=== PATIENT | male | born 1985 | race Asian ===

== ENCOUNTER 2016-12-06 09:45 | Emergency (ER) | payer OTHER ==
[~2016-12-06] VITALS: Ht 170.2 cm; Wt 72.6 kg
[2016-12-06 12:09] VITALS: BP 133/82; TEMP 98.9
== END 2016-12-06 12:12 | disposition home or self-care (01) ==
LOC: ED 09:45
DX: J06.9 Acute upper respiratory infection, unspecified (principal); J00 Acute nasopharyngitis [common cold]
CPT/HCPCS: 87804; 99283

== ENCOUNTER 2016-12-08 10:42 | Emergency (ER) | payer OTHER ==
[~2016-12-08] VITALS: Ht 170.2 cm; Wt 70.8 kg
[2016-12-08 22:48] VITALS: BP 128/85; TEMP 99.5
== END 2016-12-08 22:48 | disposition home or self-care (01) ==
LOC: ED 10:42
DX: J06.9 Acute upper respiratory infection, unspecified (principal)

== ENCOUNTER 2017-10-19 10:26 | Emergency (ER) | payer OTHER ==
[~2017-10-19] VITALS: Ht 172.7 cm; Wt 72.6 kg
[2017-10-19 10:30] VITALS: TEMP 97.9
[2017-10-19 11:38] LABS: PLATELET COUNT 254 K/uL (142-355)
[2017-10-19 12:38] VITALS: BP 132/84
== END 2017-10-19 12:38 | disposition home or self-care (01) ==
LOC: ED 10:26
PROVIDERS: Family Medicine
DX: L08.9 Local infection of the skin and subcutaneous tissue, unspecified (principal)
CPT/HCPCS: 84550; 85027; 96374; 99284; J1885

== ENCOUNTER 2018-06-07 10:12 | Emergency (ER) | payer OTHER | END 2018-06-07 10:48 | disposition home or self-care (01) | LOC: ED 10:12 | DX: R20.0 Anesthesia of skin (principal) | CPT/HCPCS: 99281 ==

== ENCOUNTER 2018-07-04 09:34 | Emergency (ER) | payer OTHER ==
[~2018-07-04] VITALS: Ht 170.2 cm; Wt 59.0 kg
[2018-07-04 09:35] VITALS: BP 121/95; TEMP 97.9
== END 2018-07-04 10:59 | disposition home or self-care (01) ==
LOC: ED 09:34
DX: K08.89 Other specified disorders of teeth and supporting structures (principal); K04.7 Periapical abscess without sinus
CPT/HCPCS: 99282; J1885

== ENCOUNTER 2018-09-09 03:18 | Emergency (ER) | payer OTHER ==
[~2018-09-09] VITALS: Ht 170.2 cm; Wt 59.0 kg
[2018-09-09 03:44] VITALS: BP 143/93; TEMP 97.9
== END 2018-09-09 04:50 | disposition home or self-care (01) ==
LOC: ED 03:18
DX: S80.11XA Contusion of right lower leg, initial encounter (principal); W18.2XXA Fall in (into) shower or empty bathtub, initial encounter; Y93.89 Activity, other specified; Y92.012 Bathroom of single-family (private) house as the place of occurrence of the external cause
CPT/HCPCS: 99282

== ENCOUNTER 2019-01-24 19:24 | Emergency (ER) | payer OTHER ==
[~2019-01-24] VITALS: Ht 170.2 cm; Wt 67.1 kg
[2019-01-24 20:11] VITALS: BP 126/72; TEMP 98.1
== END 2019-01-24 20:11 | disposition home or self-care (01) ==
LOC: ED 19:24
PROC: 0HQGXZZ Repair Left Hand Skin, External Approach (ICD-10-PCS; principal; 2019-01-24)
DX: S61.215A Laceration without foreign body of left ring finger without damage to nail, initial encounter (principal); W45.8XXA Other foreign body or object entering through skin, initial encounter
CPT/HCPCS: 90471; 90715; 96372; 99283; J0696

== ENCOUNTER 2019-02-01 14:59 | Emergency (ER) | payer OTHER ==
[~2019-02-01] VITALS: Ht 170.2 cm; Wt 74.8 kg
[2019-02-01 15:11] VITALS: BP 126/84; TEMP 98.1
== END 2019-02-01 15:55 | disposition home or self-care (01) ==
LOC: ED 14:59
DX: Z48.02 Encounter for removal of sutures (principal)

== ENCOUNTER 2019-02-25 22:51 | Outpatient (CLI) | payer OTHER | END 2019-02-25 22:59 | disposition short-term general hospital (02) | LOC: AMB 22:51 | DX: R42 Dizziness and giddiness (principal); R53.1 Weakness | CPT/HCPCS: A0425; A0427 ==

== ENCOUNTER 2019-02-25 23:10 | Emergency (ER) | payer OTHER ==
[~2019-02-25] VITALS: Ht 170.2 cm; Wt 74.8 kg
[2019-02-26 00:19] LABS: PLATELET COUNT 302 K/uL (142-355)
[2019-02-26 00:27] LABS: POTASSIUM 3.5 mmol/L (3.6-5.2)
[2019-02-26 01:25] VITALS: BP 110/75; TEMP 98.4
== END 2019-02-26 01:27 | disposition home or self-care (01) ==
LOC: ED 23:10
PROVIDERS: Family Medicine
DX: R51 Headache (principal); K04.7 Periapical abscess without sinus; R11.0 Nausea
CPT/HCPCS: 36415; 80053; 80307; 80320; 81000; 85027; 96374; 96376; 99284; J1885; J2405

== ENCOUNTER 2019-05-25 19:41 | Emergency (ER) | payer OTHER ==
[~2019-05-25] VITALS: Ht 170.2 cm; Wt 74.8 kg
[2019-05-25 19:45] VITALS: TEMP 98
[2019-05-25 21:38] VITALS: BP 128/90
== END 2019-05-25 21:52 | disposition home or self-care (01) ==
LOC: ED 19:41
DX: S70.11XA Contusion of right thigh, initial encounter (principal); S80.01XA Contusion of right knee, initial encounter; S90.01XA Contusion of right ankle, initial encounter; S90.31XA Contusion of right foot, initial encounter; V09.9XXA Pedestrian injured in unspecified transport accident, initial encounter; Y92.093 Driveway of other non-institutional residence as the place of occurrence of the external cause
CPT/HCPCS: 99283

== ENCOUNTER 2019-06-19 15:45 | Emergency (ER) | payer OTHER ==
[~2019-06-19] VITALS: Ht 170.2 cm; Wt 74.8 kg
[2019-06-19 17:25] VITALS: BP 121/67; TEMP 98.1
== END 2019-06-19 17:25 | disposition home or self-care (01) ==
LOC: ED 15:45
DX: K02.9 Dental caries, unspecified (principal); K04.7 Periapical abscess without sinus; F17.210 Nicotine dependence, cigarettes, uncomplicated
CPT/HCPCS: 99282

== ENCOUNTER 2019-07-02 20:45 | Emergency (ER) | payer OTHER ==
[~2019-07-02] VITALS: Ht 170.2 cm; Wt 64.4 kg
[2019-07-02 22:10] VITALS: BP 128/72; TEMP 97.5
== END 2019-07-02 22:10 | disposition home or self-care (01) ==
LOC: ED 20:45
DX: F41.9 Anxiety disorder, unspecified (principal)
CPT/HCPCS: 93005; 99283

== ENCOUNTER 2020-03-07 22:53 | Emergency (ER) | payer OTHER ==
[~2020-03-07] VITALS: Ht 170.2 cm; Wt 60.8 kg
[2020-03-07 23:05] VITALS: BP 137/87; TEMP 98.8
== END 2020-03-08 00:04 | disposition home or self-care (01) ==
LOC: ED 22:53
DX: S81.812A Laceration without foreign body, left lower leg, initial encounter (principal); L03.116 Cellulitis of left lower limb; W26.8XXA Contact with other sharp object(s), not elsewhere classified, initial encounter; Y92.89 Other specified places as the place of occurrence of the external cause
CPT/HCPCS: 99281

== ENCOUNTER 2020-05-08 10:29 | Emergency (ER) | payer OTHER ==
[~2020-05-08] VITALS: Ht 170.2 cm; Wt 64.5 kg
[2020-05-08 10:41] VITALS: BP 127/80; TEMP 98.8
== END 2020-05-08 12:03 | disposition home or self-care (01) ==
LOC: ED 10:29
PROC: 2W3CX1Z Immobilization of Right Lower Arm using Splint (ICD-10-PCS; principal; 2020-05-08)
DX: M67.431 Ganglion, right wrist (principal)
CPT/HCPCS: 96372; 99283; J1885

== ENCOUNTER 2020-05-23 23:23 | Emergency (ER) | payer OTHER | END 2020-05-24 01:03 | disposition home or self-care (01) | LOC: ED 23:23 | DX: H92.09 Otalgia, unspecified ear (principal) | CPT/HCPCS: 99281 ==

== ENCOUNTER 2020-06-02 20:13 | Emergency (ER) | payer OTHER ==
[~2020-06-02] VITALS: Ht 170.2 cm; Wt 64.4 kg
[2020-06-02 21:00] VITALS: BP 110/72; TEMP 98.2
== END 2020-06-02 21:00 | disposition home or self-care (01) ==
LOC: ED 20:13
DX: H60.8X1 Other otitis externa, right ear (principal)
CPT/HCPCS: 96372; 99283; J0696; J1885

== ENCOUNTER 2020-11-20 14:16 | Emergency (ER) | payer OTHER ==
[~2020-11-20] VITALS: Ht 170.2 cm; Wt 64.4 kg
[2020-11-20 14:34] VITALS: TEMP 98
[2020-11-20 15:30] LABS: PLATELET COUNT 361 K/uL (142-355)
[2020-11-20 15:43] LABS: POTASSIUM 3.7 mmol/L (3.6-5.2)
[2020-11-20 15:50] LABS: PARTIAL THROMBOPLASTIN TIME 26.7 SECONDS (24.5-33.6)
[2020-11-20 17:08] VITALS: BP 113/76
== END 2020-11-20 17:08 | disposition home or self-care (01) ==
LOC: ED 14:16
PROVIDERS: Hospitalist
DX: K29.20 Alcoholic gastritis without bleeding (principal); R11.2 Nausea with vomiting, unspecified
CPT/HCPCS: 80053; 80320; 81000; 82150; 83690; 85027; 85610; 85730; 96360; 96375; 99284; J2405; J3490

== ENCOUNTER 2021-02-19 16:19 | Emergency (ER) | payer OTHER ==
[~2021-02-19] VITALS: Ht 170.2 cm; Wt 64.4 kg
[2021-02-19 17:50] VITALS: BP 131/85; TEMP 97.9
== END 2021-02-19 17:50 | disposition home or self-care (01) ==
LOC: ED 16:19
DX: Z20.2 Contact with and (suspected) exposure to infections with a predominantly sexual mode of transmission (principal)
CPT/HCPCS: 81000; 96372; 99283; J0696

== ENCOUNTER 2021-06-16 12:13 | Emergency (ER) | payer OTHER ==
[~2021-06-16] VITALS: Ht 170.2 cm; Wt 65.8 kg
[2021-06-16 12:17] VITALS: TEMP 98.9
[2021-06-16 13:14] VITALS: BP 126/80
== END 2021-06-16 13:23 | disposition home or self-care (01) ==
LOC: ED 12:13
DX: S61.231A Puncture wound without foreign body of left index finger without damage to nail, initial encounter (principal); W29.4XXA Contact with nail gun, initial encounter; Y92.89 Other specified places as the place of occurrence of the external cause
CPT/HCPCS: 90471; 90715; 99282

== ENCOUNTER 2021-06-29 22:19 | Emergency (ER) | payer OTHER ==
[~2021-06-29] VITALS: Ht 170.2 cm; Wt 65.8 kg
[2021-06-29 23:52] VITALS: BP 124/94; TEMP 97.7
== END 2021-06-29 23:52 | disposition home or self-care (01) ==
LOC: ED 22:19
DX: F41.8 Other specified anxiety disorders (principal); F14.10 Cocaine abuse, uncomplicated
CPT/HCPCS: 80307; 93005; 99283

== ENCOUNTER 2021-09-21 10:55 | Emergency (ER) | payer OTHER ==
[~2021-09-21] VITALS: Ht 170.2 cm; Wt 65.8 kg
[2021-09-21 11:07] VITALS: BP 125/80; TEMP 98.3
== END 2021-09-21 11:35 | disposition home or self-care (01) ==
LOC: ED 10:55
DX: K02.9 Dental caries, unspecified (principal)
CPT/HCPCS: 99281

== ENCOUNTER 2021-12-03 11:00 | Emergency (ER) | payer OTHER ==
[~2021-12-03] VITALS: Ht 170.2 cm; Wt 65.8 kg
[2021-12-03 11:30] VITALS: BP 136/84; TEMP 98.7
== END 2021-12-03 11:30 | disposition home or self-care (01) ==
LOC: ED 11:00
DX: S39.012A Strain of muscle, fascia and tendon of lower back, initial encounter (principal); X50.9XXA Other and unspecified overexertion or strenuous movements or postures, initial encounter; Y92.89 Other specified places as the place of occurrence of the external cause
CPT/HCPCS: 99282; J1885

== ENCOUNTER 2021-12-08 15:49 | Emergency (ER) | payer OTHER ==
[~2021-12-08] VITALS: Ht 170.2 cm; Wt 65.8 kg
[2021-12-08 16:01] VITALS: BP 115/72; TEMP 97.3
== END 2021-12-08 17:17 | disposition home or self-care (01) ==
LOC: ED 15:49
DX: J02.0 Streptococcal pharyngitis (principal); F17.210 Nicotine dependence, cigarettes, uncomplicated
CPT/HCPCS: 96372; 99283; J0696; J1885

== ENCOUNTER 2021-12-15 07:39 | Emergency (ER) | payer OTHER ==
[~2021-12-15] VITALS: Ht 170.2 cm; Wt 65.8 kg
[2021-12-15 07:48] VITALS: TEMP 98.3
[2021-12-15 08:18] LABS: PLATELET COUNT 301 K/uL (142-355)
[2021-12-15 08:51] LABS: POTASSIUM 3.8 mmol/L (3.6-5.2)
[2021-12-15 10:20] VITALS: BP 119/67
== END 2021-12-15 10:20 | disposition home or self-care (01) ==
LOC: ED 07:39
PROVIDERS: Emergency Medicine
DX: R07.89 Other chest pain (principal); K29.60 Other gastritis without bleeding; F10.10 Alcohol abuse, uncomplicated; Y90.6 Blood alcohol level of 120-199 mg/100 ml
CPT/HCPCS: 36415; 80053; 80320; 81000; 84484; 85027; 85379; 85610; 93005; 96374; 96375; 99284; J1885; J2930

== ENCOUNTER 2021-12-17 13:21 | Emergency (ER) | payer OTHER ==
[~2021-12-17] VITALS: Ht 170.2 cm; Wt 60.3 kg
[2021-12-17 13:54] LABS: PLATELET COUNT 294 K/uL (142-355)
[2021-12-17 14:02] LABS: POTASSIUM 3.4 mmol/L (3.6-5.2)
[2021-12-17 14:14] LABS: PARTIAL THROMBOPLASTIN TIME 24.6 SECONDS (24.5-33.6)
[2021-12-17 15:00] VITALS: BP 121/87; TEMP 97.8
== END 2021-12-17 15:00 | disposition home or self-care (01) ==
LOC: ED 13:21
PROVIDERS: Hospitalist
DX: R07.89 Other chest pain (principal)
CPT/HCPCS: 80053; 82550; 83880; 84484; 85027; 85379; 85610; 85730; 93005; 99283

== ENCOUNTER 2022-02-01 08:20 | Emergency (ER) | payer OTHER ==
[~2022-02-01] VITALS: Ht 170.2 cm; Wt 60.3 kg
[2022-02-01 08:31] VITALS: BP 133/91; TEMP 97.7
[2022-02-01] MEDS ORDERED: IBU600 MG PO (08:59)
[2022-02-01] MEDS ORDERED: PREDNISONE20 MG PO (08:59)
== END 2022-02-01 09:13 | disposition home or self-care (01) ==
LOC: ED 08:20
PROC: 2W3CX1Z Immobilization of Right Lower Arm using Splint (ICD-10-PCS; principal; 2022-02-01)
DX: M77.8 Other enthesopathies, not elsewhere classified (principal); M67.431 Ganglion, right wrist
CPT/HCPCS: 99283

== ENCOUNTER 2022-03-16 11:06 | Emergency (ER) | payer OTHER ==
[~2022-03-16] VITALS: Ht 170.2 cm; Wt 62.6 kg
[~2022-03-16 11:06] MED LIST: IBU600 MG PO; PREDNISONE20 MG PO
[2022-03-16 11:12] VITALS: TEMP 98.5
[2022-03-16 11:50] VITALS: BP 117/68
== END 2022-03-16 11:50 | disposition home or self-care (01) ==
LOC: ED 11:06
PROC: 0HQGXZZ Repair Left Hand Skin, External Approach (ICD-10-PCS; principal; 2022-03-16)
DX: S61.213A Laceration without foreign body of left middle finger without damage to nail, initial encounter (principal); W26.0XXA Contact with knife, initial encounter; Y93.G3 Activity, cooking and baking; Y92.098 Other place in other non-institutional residence as the place of occurrence of the external cause
CPT/HCPCS: 99283

== ENCOUNTER 2022-08-07 07:45 | Emergency (ER) | payer OTHER ==
[~2022-08-07] VITALS: Ht 170.2 cm; Wt 62.6 kg
[2022-08-07] MEDS ORDERED: TRIAMCINOLON0.5 % TOP (08:31)
[2022-08-07] MEDS ORDERED: MEDROL DOSEPAK4 MG PO (08:31)
[2022-08-07 09:00] VITALS: BP 121/71; TEMP 97.6
== END 2022-08-07 09:02 | disposition home or self-care (01) ==
LOC: ED 07:45
DX: T63.2X1A Toxic effect of venom of scorpion, accidental (unintentional), initial encounter (principal); X58.XXXA Exposure to other specified factors, initial encounter; Y92.89 Other specified places as the place of occurrence of the external cause
CPT/HCPCS: 96372; 99283; J2920

== ENCOUNTER 2022-10-08 21:01 | Emergency (ER) | payer OTHER ==
[~2022-10-08] VITALS: Ht 170.2 cm; Wt 72.6 kg
[~2022-10-08 21:01] MED LIST changes: +MEDROL DOSEPAK4 MG PO; +TRIAMCINOLON0.5 % TOP
[2022-10-08 21:48] LABS: PLATELET COUNT 262 K/uL (142-355)
[2022-10-08 21:52] LABS: POTASSIUM 3.6 mmol/L (3.6-5.2)
[2022-10-08 23:30] VITALS: BP 121/75; TEMP 98.2
== END 2022-10-08 23:30 | disposition home or self-care (01) ==
LOC: ED 21:01
PROVIDERS: Family Medicine
DX: K29.00 Acute gastritis without bleeding (principal); F10.10 Alcohol abuse, uncomplicated; F14.10 Cocaine abuse, uncomplicated; Y90.4 Blood alcohol level of 80-99 mg/100 ml; E86.0 Dehydration
CPT/HCPCS: 36415; 80053; 80307; 80320; 81002; 82150; 83690; 85027; 96360; 96374; 99284; J2405

== ENCOUNTER 2022-12-25 00:31 | Emergency (ER) | payer OTHER ==
[~2022-12-25] VITALS: Ht 170.2 cm; Wt 59.0 kg
[2022-12-25 00:31] VITALS: TEMP 98.1
[2022-12-25 03:15] VITALS: BP 127/88
== END 2022-12-25 03:17 | disposition home or self-care (01) ==
LOC: ED 00:31
DX: F10.129 Alcohol abuse with intoxication, unspecified (principal); Y90.8 Blood alcohol level of 240 mg/100 ml or more
CPT/HCPCS: 80307; 80320; 84484; 93005; 99283

== ENCOUNTER 2023-04-12 18:55 | Emergency (ER) | payer OTHER ==
[~2023-04-12] VITALS: Ht 170.2 cm; Wt 63.0 kg
[2023-04-12 23:35] VITALS: BP 117/73; TEMP 99.2
== END 2023-04-12 23:35 | disposition home or self-care (01) ==
LOC: ED 18:55
DX: S20.20XA Contusion of thorax, unspecified, initial encounter (principal); S40.011A Contusion of right shoulder, initial encounter; V86.95XA Unspecified occupant of 3- or 4- wheeled all-terrain vehicle (ATV) injured in nontraffic accident, initial encounter
CPT/HCPCS: 96374; 96375; 99284; J1885; J2405

== ENCOUNTER 2023-10-25 09:43 | Emergency (ER) | payer OTHER ==
[~2023-10-25] VITALS: Ht 170.2 cm; Wt 64.4 kg
[2023-10-25] MEDS ORDERED: PROMETHAZINE DM1 SOL PO (10:38)
[2023-10-25] MEDS ORDERED: TAMIFLU75 MG PO (10:38)
[2023-10-25 10:55] VITALS: BP 130/75; TEMP 98.2
== END 2023-10-25 10:55 | disposition home or self-care (01) ==
LOC: ED 09:43
DX: R05.9 Cough, unspecified (principal); R51.9 Headache, unspecified; R50.9 Fever, unspecified; J10.1 Influenza due to other identified influenza virus with other respiratory manifestations; F17.210 Nicotine dependence, cigarettes, uncomplicated
CPT/HCPCS: 99282